=== PATIENT | female | born 1990 | race Two or more races ===

== ENCOUNTER 2017-09-09 21:44 | Emergency (ER) | payer MEDICAID ==
--- NOTE | 2017-09-09 23:56 | ER Document Report ---
ED Medical Screen (RME) - General Chief Complaint: Chest Pain Stated Complaint: CHEST PAIN Time Seen by Provider: 09/09/17 23:51 Mode of Arrival: Ambulatory Information source: Patient TRAVEL OUTSIDE OF THE [place] IN LAST 30 DAYS: No - HPI Patient complains to provider of: Palpitations, tachycardia, shortness of breath , headache Notes: 09/09/17 23:55 Patient is a 27-year-old female presenting to the emergency room complaining of intermittent episodes of tachycardia, with shortness of breath, palpitations, and persistent headache, symptoms have been going on since yesterday and last approximately 5 minutes when they do occur - Related Data Allergies/Adverse Reactions: No Known Allergies Allergy (Verified 04/02/15 00:50) Past Medical History - Social History Chew tobacco use (# tins/day): No Frequency of alcohol use: None Drug Abuse: None Neurological Medical History: Reports: Hx Migraine Renal/ Medical History: Denies: Hx Peritoneal Dialysis Psychiatric Medical History: Reports: Hx Anxiety Past Surgical History: Reports: Hx Cholecystectomy - Immunizations Immunizations up to date: Yes Hx Diphtheria, Pertussis, Tetanus Vaccination: Yes Physical Exam - Vital signs Vitals: Temp Pulse Resp BP Pulse Ox 98.5 F 93 17 130/76 H 99 09/09/17 22:24 09/09/17 22:24 09/09/17 22:24 09/09/17 22:24 09/09/17 22:24 Course - Vital Signs Vital signs: Temp Pulse Resp BP Pulse Ox 98.5 F 93 17 130/76 H 99 09/09/17 22:24 09/09/17 22:24 09/09/17 22:24 09/09/17 22:24 09/09/17 22:24
--- NOTE | 2017-09-10 00:39 | RADIOLOGY REPORT (SQ) ---
EXAM DESCRIPTION: CHEST PA/LAT CLINICAL HISTORY: sob COMPARISON: None. FINDINGS: Frontal and lateral views of the chest. The cardiomediastinal silhouette has normal size and contour. No consolidation, pneumothorax, or pleural effusion. No displaced rib fractures identified. Prior cholecystectomy. IMPRESSION: 1. No acute pulmonary process identified.
[2017-09-10 00:47] LABS: APPEARANCE,URINE CLEAR; BILIRUBIN,URINE NEGATIVE (NEGATIVE); GLUCOSE, URINE NEGATIVE (NEGATIVE); KETONES,URINE NEGATIVE (NEGATIVE); LEUKOCYTE ESTERASE,URINE NEGATIVE (NEGATIVE); NITRITE,URINE NEGATIVE (NEGATIVE); PROTEIN,URINE NEGATIVE (NEGATIVE); UROBILINOGEN,URINE NEGATIVE mg/dL (<2.0)
[2017-09-10 00:50] LABS: ABSOLUTE BASOPHILS # (AUTO) 0.1 10^3/uL (0.0-0.2); ABSOLUTE LYMPHOCYTES (AUTO) 1.7 10^3/uL (0.5-4.7); ABSOLUTE MONOCYTES (AUTO) 0.5 10^3/uL (0.1-1.4); ABSOLUTE NEUT (AUTO) 6.1 10^3/uL (1.7-8.2); BASOPHILS % (AUTO) 0.6 % (0-2); EOSINOPHILS % (AUTO) 0.4 % (0-6); HEMATOCRIT 37.7 % (36.0-47.0); HEMOGLOBIN 12.9 g/dL (12.0-15.5); LYMPHOCYTES % (AUTO) 19.9 % (13-45); MEAN CORPUSCULAR HEMOGLOBIN 27.7 pg (27.0-33.4); MEAN CORPUSCULAR HGB CONC 34.2 g/dL (32.0-36.0); MEAN CORPUSCULAR VOLUME 81 fl (80-97); MONOCYTES % (AUTO) 6.3 % (3-13); RED BLOOD COUNT 4.66 10^6/uL (3.72-5.28); RED CELL DISTRIBUTION WIDTH 15.5 % (11.5-14.0); SEGMENTED NEUTROPHILS % (AUTO) 72.8 % (42-78); WHITE BLOOD COUNT 8.4 10^3/uL (4.0-10.5)
[2017-09-10 01:01] LABS: ALANINE AMINOTRANSFERASE 38 U/L (9-52); ALBUMIN 4.7 g/dL (3.5-5.0); ALKALINE PHOSPHATASE 61 U/L (38-126); ANION GAP 15 (5-19); ASPARTATE AMINO TRANSFERASE 19 U/L (14-36); BILIRUBIN,DIRECT 0.3 mg/dL (0.0-0.4); BILIRUBIN,TOTAL 0.3 mg/dL (0.2-1.3); BLOOD UREA NITROGEN 12 mg/dL (7-20); CALCIUM 9.9 mg/dL (8.4-10.2); CARBON DIOXIDE 27 mmol/L (22-30); CHLORIDE 103 mmol/L (98-107); CREATINE KINASE 36 U/L (30-135); CREATININE RESULT 0.59 mg/dL (0.52-1.25); GLUCOSE 97 mg/dL (75-110); POTASSIUM 3.9 mmol/L (3.6-5.0); SODIUM 144.9 mmol/L (137-145); TOTAL PROTEIN 7.7 g/dL (6.3-8.2)
--- NOTE | 2017-09-10 02:12 | ER Document Report ---
ED General - General Chief Complaint: Chest Pain Stated Complaint: CHEST PAIN Time Seen by Provider: 09/09/17 23:51 Mode of Arrival: Ambulatory Notes: Patient is a 27-year-old female who presents with complaints of feeling as if her heart will intermittently race. Occasionally she has a small amount of chest pain. No difficulty breathing. No fevers. No diaphoresis. No passing out. Patient says it does not seem to be triggered by anything particular. She denies being under a lot of stress. She denies drinking any energy drinks. She denies taking any energy supplements. She says this has happened a few times in the past. She said happened several times in October and also in January. She has not had a Holter monitor. She has not had a large workup for this. She is on no medications. She does not smoke. She does not drink. She does not do any illegal drugs. She denies ever doing cocaine. She has no other complaints at this time. No recent surgeries or long travel. TRAVEL OUTSIDE OF THE [place] IN LAST 30 DAYS: No - Related Data Allergies/Adverse Reactions: acetaminophen [From Fioricet] Allergy (Verified 09/09/17 23:57) butalbital [From Fioricet] Allergy (Verified 09/09/17 23:57) caffeine [From Fioricet] Allergy (Verified 09/09/17 23:57) Past Medical History - General Information source: Patient - Social History Smoking Status: Never Smoker Chew tobacco use (# tins/day): No Frequency of alcohol use: None Drug Abuse: None Family History: Reviewed & Not Pertinent Patient has suicidal ideation: No Patient has homicidal ideation: No Neurological Medical History: Reports: Hx Migraine Renal/ Medical History: Denies: Hx Peritoneal Dialysis Psychiatric Medical History: Reports: Hx Anxiety Past Surgical History: Reports: Hx Cholecystectomy - Immunizations Immunizations up to date: Yes Hx Diphtheria, Pertussis, Tetanus Vaccination: Yes Review of Systems - Review of Systems Notes: My Normal Review Basic REVIEW OF SYSTEMS: CONSTITUTIONAL : Denies fever, chills, or sweats. Denies recent illness. EENT: Denies eye, ear, throat, or mouth pain or symptoms. Denies nasal or sinus congestion. CARDIOVASCULAR: Some chest pain with palpitations. RESPIRATORY: Denies cough, cold, or chest congestion. Denies shortness of breath, difficulty breathing, or wheezing. MUSCULOSKELETAL: Denies neck or back pain or joint pain or swelling. SKIN: Denies rash or skin lesions. NEUROLOGICAL: Denies altered mental status or loss of consciousness. Denies headache. Denies weakness or paralysis or loss of use of either side. Denies problems with gait or speech. Denies sensory or motor loss. ALL OTHER SYSTEMS REVIEWED AND NEGATIVE. Physical Exam - Vital signs Vitals: Temp Pulse Resp BP Pulse Ox 98.5 F 93 17 130/76 H 99 09/09/17 22:24 09/09/17 22:24 09/09/17 22:24 09/09/17 22:24 09/09/17 22:24 - Notes Notes: General Appearance: Well nourished, alert, cooperative, no acute distress, no obvious discomfort. Well appearing. Vitals: reviewed, See vital signs table. Head: no swelling or tenderness to the head Eyes: PERRL, EOMI, Conjuctiva clear Mouth: No decreasd moisture Neck: Supple, no neck tenderness Lungs: No wheezing, No rales, No rhonci, No accessory muscle use, good air exchange bilaterally. Heart: Normal rate, Regular rythm, No murmur, no rub Abdomen: Normal BS, soft, No rigidity, No abdominal tenderness, No guarding, no rebound, no abdominal masses, no organomegaly Extremities: strength 5/5 in all extremities, good pulses in all extremities, no swelling or tenderness in the extremities, no edema. Skin: warm, dry, appropriate color, no rash Neuro: speech clear, oriented x 3, normal affect, responds appropriately to questions. Course - Re-evaluation Re-evalutation: 09/10/17 07:06 She is limited evaluation is unremarkable. Her TSH is negative. Her symptoms seem benign. She has no syncope or passing out. She looks very well on exam. She has no signs of heart failure. Her lung aponte are clear. She has no edema in her legs. I will have her follow-up with subgrade roller operator for reevaluation possible Holter monitor. I encouraged her return to ER immediately if she has worsening palpitations, chest pain, difficulty breathing , or syncope. Patient agrees with plan will be discharged home. She is PERC rule negative. - Vital Signs Vital signs: Temp Pulse Resp BP Pulse Ox 98.5 F 93 17 107/77 100 09/09/17 22:24 09/09/17 22:24 09/10/17 03:01 09/10/17 03:01 09/09/17 23:55 - Laboratory Result Diagrams: 09/10/17 00:15 09/10/17 00:15 Laboratory results interpreted by me: 09/10/17 00:15 RDW 15.5 H - EKG Interpretation by Me Additional EKG results interpreted by me: 09/10/17 02:11 EKG is reviewed and interpreted by me. EKG shows normal sinus rhythm with rate of [address] segment elevation or depression. No ischemic T-wave inversions. Portable, QRS duration, QTc intervals are within normal range. Old EKG for comparison is from April 18, 2015. Discharge - Discharge Clinical Impression: Palpitations Chest pain Qualifiers: Chest pain type: unspecified Qualified Code(s): R07.9 - Chest pain, unspecified Condition: Good Disposition: HOME, SELF-CARE Additional Instructions: Your blood work looking at your thyroid function and heart was normal today. Do to the recurrence of your symptoms I will refer to you to the subgrade roller operator, Dr. Loco, for further evaluation. You may eventually need a holter monitor if he feels this is nescessary. please return to the ER immediately if you have prolonged feelings of heart racing, chest pain, or feel that you are going to pass out. Avoid exertional activities until cleared by the subgrade roller operator. Referrals: DAT LOCO MD [ACTIVE STAFF] - Follow up in 3-5 days
[2017-09-10 03:41] VITALS: BP 107/77
--- NOTE | 2017-09-10 09:02 | EKG REPORT ---
SEVERITY:- NORMAL ECG - SINUS RHYTHM : Confirmed by: Tc Marie 10-Sep-2017 09:01:43
== END 2017-09-10 05:13 | disposition home or self-care (01) ==
LOC: ER 21:44
DX: R07.9 Chest pain, unspecified (principal); R00.2 Palpitations; Z88.6 Allergy status to analgesic agent; Z90.49 Acquired absence of other specified parts of digestive tract
CPT/HCPCS: 36415; 71020; 80053; 81001; 82550; 82553; 84443; 84703; 85025; 93005; 93010; 99285